=== PATIENT | male | born 1930 | race Caucasian/White ===

== ENCOUNTER → 2017-10-01 | Outpatient (CLI) | payer OTHER ==
[~2017-10-01] MED LIST: ACCUPRIL40 MG PO; AMLODIPINE BESYL5 MG PO; ARICEPT 5 MG TAB5 MG PO; ASPIR 8181 MG PO; CARTIA XT240 M1 PO; CELEXA40 MG PO; CO Q-1010 MG PO; ELIQUIS2.5 MG PO; LAMISIL AT 1% C12 G1 TOP; LAMISIL250 MG PO; LIPITOR 20 MG T20 M1 PO; MULTIVITAMINS PO; NAMENDA 10 MG T10 MG PO; RED YEAST RICE600 MG PO; SIMVASTATIN40 MG PO; SYNTHROID50 MCG PO; TRAMADOL 50 MG50 MG PO; VITAMIN B-625 MG PO; XANAX 0.25 MG0.25 MG PO
--- NOTE | ~2017-10-01 | EKG ---
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: Hung NINO : 1930 Requested By: Candy Ash Order Number: [id number] MD: Silviano Rios Measurements Intervals [place] Rate: 112 P: ID: QRS: 21 QRSD: 88 T: 89 QT: 356 QTc: 486 Interpretive Statements Atrial fibrillation Low voltage, extremity leads Anteroseptal infarct, old Nonspecific T abnormalities, lateral leads Compared to ECG 06/05/2015 18:21:10 Atrial fibrillation has replaced sinus rhythm Electronically Signed On 10-01-2017 17:33:43 QUALITY PROCESS LEAD by Silviano Rios [email or web address] <ELECTRONICALLY SIGNED> By: Silviano Rios MD, [facility] 10/01/17 1733 1318 131 Silviano Rios MD, [facility] /EPI
== END ==
LOC: CV 11:21
DX: I10 Essential (primary) hypertension (principal)

== ENCOUNTER 2018-01-12 17:09 | Inpatient (IN) | payer OTHER ==
[~2018-01-12] VITALS: Ht 175.3 cm; Wt 79.2 kg
--- NOTE | ~2018-01-12 | EEG ---
[facility] [address]anna [place] [address] ELECTROENCEPHALOGRAM Name: SILVIA BRICENO Room #: 352-P [facility] IN M.R.#: [id number] Admission: 01/12/18 Attend Phys: Radames Bates MD Discharge: 01/14/18 Date of : 31 Report #: [id number] THIS REPORT FOR: //name// CC: Oh Bates DATE OF SERVICE: 01/13/2018 This patient is being evaluated for TIA. EEG was done by placing the electrodes by standard 10-20 system of electrode placement. Both referential and sequential montages were used for recording. Background activity in this patient's EEG is about 11 Hz and 40 microvolts. It is a symmetrical activity. This patient became drowsy and also associated with bilateral slowing. Photic stimulation is unremarkable. Throughout the record, no active epileptiform activity was noticed. IMPRESSION: This patient's EEG is unremarkable. <ELECTRONICALLY SIGNED> By: Hosea Castaneda MD 01/16/18 1225 1153 1220 Hosea Castaneda MD /nt
--- NOTE | ~2018-01-12 | 2DMMODE ---
[facility] [place] [address] 2 D/M-MODE ECHOCARDIOGRAM Name: SILVIA BRICENO Room #: 352-P ADM IN M.R.#: [id number] Admission: 01/12/18 Attend Phys: Radames Bates MD Discharge: Date of : 31 Date of Service: 01/14/18 1225 Report #: [id number] THIS REPORT FOR: //name// APPROVED REPORT Study performed: 01/14/2018 10:56:10 EXAM: Limited 2D, Doppler, and color-flow Echocardiogram Patient Location: [facility] Room #: [facility] BSA: 1.95 HR: 110 bpm BP: 129/88 mmHg Rhythm: Atrial Fibrillation Other Information Study Quality: Good Indications Limited follow up echo. Possible TIA. Hx: Afib, HTN Echo Enhancing Agent Indication: Rule out Shunt Agent(s) / Amount(s) Used: Agitated Saline 6 cc Tricuspid Valve TR Peak Ochoa.: 2.65 m/s RAP Estimate: 15.00 mmHg TR Peak Gr.: 28.23 mmHg PA Pressure: 43.00 mmHg Left Ventricle The left ventricle is normal size. Severe concentric left ventricular hypertrophy. Left ventricular systolic function is normal. LVEF is 55%. Atria Left atrium is dilated. No shunting noted with contrast bubble injection. Aortic Valve The Aortic valve is sclerotic. Trace to mild aortic regurgitation. There is no aortic valvular stenosis. Mitral Valve The mitral valve is normal in structure. Mild mitral [facility] [address] [place] [address] 2 D/M-MODE ECHOCARDIOGRAM Name: SILVIA BRICENO Room #: 352-P ADM IN M.R.#: [id number] Admission: 01/12/18 Attend Phys: Radames Bates MD Discharge: Date of : 31 Date of Service: 01/14/18 1225 Report #: [id number] regurgitation. Tricuspid Valve The tricuspid valve is normal in structure. Mild tricuspid regurgitation. Estimated PAP is 40-45mmHg. Great Vessels IVC is dilated and collapses <50% with inspiration. Pericardium Trivial amount of anterior fluid noted. Left and right pleural effusions noted. <Conclusion> The left ventricle is normal size. LVEF is 55%. Left atrium is dilated. No shunting noted with contrast bubble injection. The Aortic valve is sclerotic. Trace to mild aortic regurgitation. The mitral valve is normal in structure. Mild mitral regurgitation. The tricuspid valve is normal in structure. Mild tricuspid regurgitation. Estimated PAP is 40-45mmHg. Trivial amount of anterior fluid noted. Left and right pleural effusions noted. <ELECTRONICALLY SIGNED> By: Mario Clements MD 01/14/18 1225 1225 1225 Mario Clements MD /INF
--- NOTE | ~2018-01-12 | HC ---
[facility] [place] [address] CONSULTATION Name: SILVIA BRICENO Room #: 352-P [facility] IN M.R.#: [id number] Admission: 01/12/18 Attend Phys: Radames Bates MD Discharge: 01/14/18 Date of : 31 Report #: [id number] THIS REPORT FOR: //name// CC: Karie Mike DATE OF SERVICE: 01/13/2018 HISTORY OF PRESENT ILLNESS: This is an 87-year-old male patient who has a baseline dementia. The patient goes to a neurologist at [facility]. The patient does not know the name of that neurologist. did not know the name of the neurologist either. He is on a combination of donepezil and Namenda. According to the , this patient woke up and he could not recognize him which is very unusual for him. He also looks slower. Since then, his symptoms have resolved. The patient does not remember this episode. It happened spontaneously without any trauma. REVIEW OF SYSTEMS: Indicate that this patient has chronic atrial fibrillation. He usually follows up with Dr. Judd for the atrial fibrillation. He is on medications including what looks like Cardizem. He has a lumbar fusion in the past. He has a history of DVT, but apparently that was because of surgery. The patient denies any new eye, ENT, cardiac, respiratory, GI, , constitutional, dermatological, hematological, psychiatric, throat, allergic symptom associated with present symptomatology. PAST MEDICAL HISTORY: Positive for atrial fibrillation. FAMILY HISTORY: Negative for any early age stroke. SOCIAL HISTORY: He lives with his and I talked to her in detail. He does not smoke or drink alcohol. PHYSICAL EXAMINATION: NEUROLOGIC: Indicates that he is alert. He is responsive. He could not tell me the month. His memory is very poor. That will be consistent with dementia. The speech looks intact. His fund of knowledge is poor. Cranial nerve examination 2-12 is unremarkable. He looks like has unremarkable strength, sensation, reflexes and tone. There is no cerebellar sign. I could not look at the patient's fundus. GENERAL: He is a very well-developed individual who does not have any dysmorphic features of eyes, ears and face. HEENT: His vision and hearing looks adequate. EXTREMITIES: His pulses are somewhat difficult to feel, but no edema, cyanosis or jaundice was noticed. VITAL SIGNS: Blood pressure is 128/88, respirations 19, pulse is 72, temperature is 97.8. [facility] [address] [place] [address] CONSULTATION Name: SILVIA BRICENO Room #: 352-P [facility] IN [facility]#: [id number] Admission: 01/12/18 Attend Phys: Radames Bates MD Discharge: 01/14/18 Date of : 31 Report #: [id number] LABORATORY DATA: White count is 7.9. His sodium is 138. His TSH is slightly abnormal. He did have a CT scan of the head, which mainly showed atrophic changes. His heart is irregular consistent with atrial fibrillation. IMPRESSION: He had an episode. I am not sure the etiology of this episode. He also has some history of falls. All of it is somewhat concerning considering his history of atrial fibrillation. If he did have a transient ischemic attack or small stroke that will change his CHADS score and the question of anticoagulation need to be readdressed then. RECOMMENDATION: I had a long talk with this patient's . I discussed her options with her. I suggested that the patient complete his workup before he goes. She is agreeable for that. She initially has some reservation, but subsequently she agreed to stay. My recommendation will be that we get an MRI of the brain done, which is ordered. I will also get an EEG done because of this episode of confusion and a history of fall and I will suggest getting reevaluation done by Cardiology. After this workup is done, the question need to be decided whether he had a small stroke or a TIA or this episode was not related to stroke or TIA. That is an important question in this patient because it does not change his CHADS score, but if the MRI is positive for small stroke that will be easy to decide; but if the MRI is negative, we have to make a subjective call and we will follow up and do that. Dr. Hassan will be on-call will be covering the services from tomorrow and I will ask her to continue to follow up with you from tomorrow. <ELECTRONICALLY SIGNED> By: Hosea Castaneda MD 01/16/18 1224 1229 0119 Hosea Castaneda MD /nt
--- NOTE | ~2018-01-12 | EKG ---
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 : 1930 Requested By: Kev Arias Order Number: [id number] MD: Riley Curry Measurements Intervals [place] Rate: 108 P: MA: QRS: -13 QRSD: 95 T: 73 QT: 407 QTc: 546 Interpretive Statements Atrial fibrillation Anteroseptal infarct, old Nonspecific T abnormalities, lateral leads Compared to ECG 10/01/2017 13:18:43 Myocardial infarct finding still present T-wave abnormality still present Electronically Signed On 01-14-2018 8:05:11 CDT by Riley Curry [email or web address] <ELECTRONICALLY SIGNED> By: Riley Curry MD 01/14/18 0805 190 05 Riley Curry MD /EPI
[~2018-01-12 17:09] MED LIST changes: -ARICEPT 5 MG TAB5 MG PO; -ASPIR 8181 MG PO; -CARTIA XT240 M1 PO; -ELIQUIS2.5 MG PO; -LIPITOR 20 MG T20 M1 PO; -NAMENDA 10 MG T10 MG PO; -SYNTHROID50 MCG PO
[2018-01-12 17:10] VITALS: BP 154/110
[2018-01-12] MEDS ORDERED: NAMENDA 10 MG T10 MG PO (17:23)
[2018-01-12] MEDS ORDERED: SYNTHROID50 MCG PO (17:23)
[2018-01-12] MEDS ORDERED: LIPITOR 20 MG T20 M1 PO (17:24)
[2018-01-12] MEDS ORDERED: ARICEPT 5 MG TAB5 MG PO (17:26)
[2018-01-12 18:05] LABS: ABSOLUTE NEUTROPHILS 5.1 thou/uL (1.4-8.2); BASOPHILS 0.7 % (0.0-2.0); EOSINOPHILS 2.5 % (0.0-3.0); HEMATOCRIT 40.9 % (42.0-52.0); HEMOGLOBIN 13.6 gm/dL (14.0-18.0); LYMPHOCYTES 22.6 % (24.0-44.0); MCH 29.5 pg (26.0-34.0); MCHC 33.2 g/dL (28.0-37.0); MONOCYTES 9.7 % (1.0-8.0); PLATELET COUNT 212 thou/uL (150-400); POLYS 64.5 % (36.0-66.0); RBC 4.59 mil/uL (4.50-6.00); RDW 14.8 % (10.5-14.5); WBC 7.9 thou/uL (4.0-11.0)
[2018-01-12 18:08] LABS: URINE BILIRUBIN NEGATIVE (Negative); URINE BLOOD NEGATIVE (Negative); URINE CLARITY CLEAR; URINE COLOR YELLOW; URINE GLUCOSE-RANDOM* NEGATIVE (Negative); URINE KETONES NEGATIVE (Negative); URINE LEUKOCYTES-REFLEX NEGATIVE (Negative); URINE NITRITE-REFLEX NEGATIVE (Negative); URINE PROTEIN (DIPSTICK) 1+ (Negative); URINE SPECIFIC GRAVITY >= 1.030 (1.005-1.035); URINE UROBILINOGEN 0.2 E.U./dl (0.2-1.0)
[2018-01-12 18:12] LABS: CREATININE 1.6 mg/dL (0.7-1.3); POTASSIUM 3.5 mmol/L (3.5-5.1)
[2018-01-12 18:16] LABS: BACTERIA-REFLEX None Seen /HPF (None Seen); CASTS None Seen /LPF (None Seen); CRYSTALS None Seen /LPF (None Seen); MUCUS >6 Heavy strn/LPF (None Seen); SQUAMOUS 0-3 Few /LPF (0-3); URINE RBC 0-2 Rare /HPF (0-2); URINE WBC-REFLEX 0-5 Rare /HPF (0-5)
[2018-01-12] MEDS ORDERED: ASPIR 8181 MG PO (18:51)
[2018-01-12 19:21] LABS: MAGNESIUM 2.3 mg/dL (1.8-2.4); TROPONIN-I < 0.04 ng/mL (<0.06)
[2018-01-12 20:01] VITALS: BP 127/94
[2018-01-12 21:27] VITALS: BP 139/57
[2018-01-12 21:30] VITALS: BP 146/100
[2018-01-12 23:40] VITALS: BP 128/83
[2018-01-13] MEDS ORDERED: CARTIA XT240 M1 PO (01:07)
[2018-01-13 05:00] VITALS: BP 130/81
[2018-01-13 07:18] VITALS: BP 133/96
[2018-01-13 11:12] VITALS: BP 128/88
[2018-01-13 15:17] LABS: ABSOLUTE NEUTROPHILS 4.7 thou/uL (1.4-8.2); BASOPHILS 0.8 % (0.0-2.0); EOSINOPHILS 2.8 % (0.0-3.0); HEMATOCRIT 40.3 % (42.0-52.0); HEMOGLOBIN 13.2 gm/dL (14.0-18.0); LYMPHOCYTES 22.5 % (24.0-44.0); MCHC 32.8 g/dL (28.0-37.0); MCV 88.4 fL (80.0-100.0); MONOCYTES 8.9 % (1.0-8.0); PLATELET COUNT 206 thou/uL (150-400); RBC 4.56 mil/uL (4.50-6.00); RDW 15.2 % (10.5-14.5); WBC 7.2 thou/uL (4.0-11.0)
[2018-01-13 17:43] LABS: CALCIUM 8.5 mg/dL (8.5-10.1); CREATININE 1.7 mg/dL (0.7-1.3); POTASSIUM 3.5 mmol/L (3.5-5.1)
[2018-01-13 19:15] VITALS: BP 138/86
[2018-01-14] VITALS (7 sets, daily range): BP systolic 109–141; BP diastolic 70–98
[2018-01-14 05:52] LABS: ABSOLUTE NEUTROPHILS 4.2 thou/uL (1.4-8.2); BASOPHILS 0.7 % (0.0-2.0); EOSINOPHILS 3.6 % (0.0-3.0); HEMATOCRIT 39.4 % (42.0-52.0); LYMPHOCYTES 26.2 % (24.0-44.0); MCH 29.1 pg (26.0-34.0); MCHC 33.1 g/dL (28.0-37.0); MCV 88.1 fL (80.0-100.0); MONOCYTES 11.3 % (1.0-8.0); PLATELET COUNT 193 thou/uL (150-400); POLYS 58.2 % (36.0-66.0); RBC 4.48 mil/uL (4.50-6.00); RDW 14.9 % (10.5-14.5); WBC 7.2 thou/uL (4.0-11.0)
[2018-01-14 06:00] LABS: CALCIUM 8.9 mg/dL (8.5-10.1); CREATININE 1.5 mg/dL (0.7-1.3); POTASSIUM 3.3 mmol/L (3.5-5.1)
== END 2018-01-14 19:08 | disposition home health service (06) | DRG 69 ==
LOC: ER 17:09 → EROBS 19:09 → 3W 19:09
PROVIDERS: Emergency Medicine; Hospitalist
DX: G45.9 Transient cerebral ischemic attack, unspecified (principal); N17.9 Acute kidney failure, unspecified; F03.90 Unspecified dementia, unspecified severity, without behavioral disturbance, psychotic disturbance, mood disturbance, and anxiety; E03.9 Hypothyroidism, unspecified; E78.5 Hyperlipidemia, unspecified; I48.2 Chronic atrial fibrillation; I12.9 Hypertensive chronic kidney disease with stage 1 through stage 4 chronic kidney disease, or unspecified chronic kidney disease; E86.0 Dehydration; N18.9 Chronic kidney disease, unspecified; Z79.82 Long term (current) use of aspirin; Z82.49 Family history of ischemic heart disease and other diseases of the circulatory system; Z79.899 Other long term (current) drug therapy
CPT/HCPCS: 10879

== ENCOUNTER 2018-01-17 11:32 | Inpatient (IN) | payer OTHER ==
[~2018-01-17] VITALS: Ht 172.7 cm; Wt 74.4 kg
--- NOTE | ~2018-01-17 | EKG ---
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
--- NOTE | ~2018-01-17 | EKG ---
[place] [address] [place] [address] ELECTROCARDIOGRAM REPORT Name: SILVIA BRICENO Room #: REG Neha#: [id number] Admission: 01/17/18 Attend Phys: Discharge: Date of : 31 Report #: [id number] THIS REPORT FOR: //name// [facility] ED Test Date: 2018-01-17 Test Time: 11:39:01 Pat Name: SILVIA BRICENO Department: Room: Gender: Residential Program Manager: [email or web address] : 1930 Requested By: Aileen Catalan Order Number: [id number] MD: Silviano Rios Measurements Intervals [place] Rate: 96 P: [place]: QRS: -20 QRSD: 94 T: 90 QT: 378 QTc: 478 Interpretive Statements Atrial fibrillation Anterior infarct, old Nonspecific T abnormalities, lateral leads Compared to ECG 01/12/2018 19:06:30 No significant changes Electronically Signed On 01-17-2018 12:29:40 CDT by Silviano Rios [email or web address] <ELECTRONICALLY SIGNED> By: Silviano Rios MD, [facility] 01/17/18 1229 1139 1139 Silviano Rios MD, FACC /EPI
[~2018-01-17 11:32] MED LIST changes: +ARICEPT 5 MG TAB5 MG PO; +ASPIR 8181 MG PO; +CARTIA XT240 M1 PO; +LIPITOR 20 MG T20 M1 PO; +NAMENDA 10 MG T10 MG PO; +SYNTHROID50 MCG PO
[2018-01-17 11:33] VITALS: BP 156/107
[2018-01-17 11:54] LABS: ABSOLUTE NEUTROPHILS 3.8 thou/uL (1.4-8.2); BASOPHILS 0.7 % (0.0-2.0); EOSINOPHILS 2.9 % (0.0-3.0); HEMATOCRIT 43.1 % (42.0-52.0); HEMOGLOBIN 14.2 gm/dL (14.0-18.0); LYMPHOCYTES 31.4 % (24.0-44.0); MCH 29.1 pg (26.0-34.0); MCHC 32.9 g/dL (28.0-37.0); MCV 88.6 fL (80.0-100.0); MONOCYTES 10.3 % (1.0-8.0); PLATELET COUNT 212 thou/uL (150-400); POLYS 54.7 % (36.0-66.0); RBC 4.86 mil/uL (4.50-6.00)
[2018-01-17 12:01] LABS: CALCIUM 9.1 mg/dL (8.5-10.1); CREATININE 1.6 mg/dL (0.7-1.3); POTASSIUM 3.4 mmol/L (3.5-5.1)
[2018-01-17 12:35] LABS: URINE BILIRUBIN NEGATIVE (Negative); URINE BLOOD NEGATIVE (Negative); URINE CLARITY CLEAR; URINE COLOR YELLOW; URINE GLUCOSE-RANDOM* NEGATIVE (Negative); URINE KETONES NEGATIVE (Negative); URINE LEUKOCYTES NEGATIVE (Negative); URINE NITRITE NEGATIVE (Negative); URINE PROTEIN (DIPSTICK) TRACE (Negative); URINE UROBILINOGEN 0.2 E.U./dl (0.2-1.0)
[2018-01-17 13:58] VITALS: BP 122/77
[2018-01-17 15:35] VITALS: BP 129/88
[2018-01-17 16:00] VITALS: BP 122/78
[2018-01-17 19:10] VITALS: BP 120/89
[2018-01-17 23:40] VITALS: BP 140/99
[2018-01-18 03:35] VITALS: BP 150/90
[2018-01-18 08:35] VITALS: BP 133/89
[2018-01-18 09:45] LABS: HEMATOCRIT 40.8 % (42.0-52.0); HEMOGLOBIN 13.5 gm/dL (14.0-18.0); MCH 29.3 pg (26.0-34.0); MCHC 33.1 g/dL (28.0-37.0); MCV 88.3 fL (80.0-100.0); RBC 4.62 mil/uL (4.50-6.00); RDW 14.6 % (10.5-14.5); WBC 6.6 thou/uL (4.0-11.0)
[2018-01-18 10:01] LABS: ALBUMIN 3.5 g/dL (3.4-5.0); CALCIUM 9.1 mg/dL (8.5-10.1); CREATININE 1.5 mg/dL (0.7-1.3); POTASSIUM 3.3 mmol/L (3.5-5.1); TOTAL BILIRUBIN 0.9 mg/dL (<0.1-1.0)
[2018-01-18 12:15] VITALS: BP 115/79
[2018-01-18 16:08] VITALS: BP 113/78
[2018-01-18 17:13] VITALS: BP 113/78
[2018-01-18 20:00] VITALS: BP 116/78
[2018-01-19 04:00] VITALS: BP 124/81
[2018-01-19 08:03] VITALS: BP 131/89
[2018-01-19 12:00] VITALS: BP 134/94
[2018-01-19 15:13] VITALS: BP 105/68
[2018-01-19 15:26] VITALS: BP 100/67
[2018-01-19 19:45] VITALS: BP 111/75
[2018-01-20 03:57] VITALS: BP 131/88
[2018-01-20 08:27] VITALS: BP 128/84
[2018-01-20 11:50] VITALS: BP 126/81
[2018-01-20] MEDS ORDERED: ELIQUIS2.5 MG PO (14:56)
[2018-01-20 15:35] VITALS: BP 113/78
== END 2018-01-20 16:16 | disposition home health service (06) | DRG 71 ==
LOC: ER 11:32 → 3W 13:47 → EROBS 13:47 → 3W 15:36
PROVIDERS: Emergency Medicine; Hospitalist
DX: G93.40 Encephalopathy, unspecified (principal); G45.9 Transient cerebral ischemic attack, unspecified; I10 Essential (primary) hypertension; F03.90 Unspecified dementia, unspecified severity, without behavioral disturbance, psychotic disturbance, mood disturbance, and anxiety; I48.2 Chronic atrial fibrillation; N18.9 Chronic kidney disease, unspecified; E03.9 Hypothyroidism, unspecified; E87.6 Hypokalemia; F32.9 Major depressive disorder, single episode, unspecified; F48.2 Pseudobulbar affect; Z79.899 Other long term (current) drug therapy; Z79.82 Long term (current) use of aspirin; Z87.891 Personal history of nicotine dependence
CPT/HCPCS: 10879

== ENCOUNTER 2019-01-05 14:22 | Inpatient (IN) | payer OTHER ==
[~2019-01-05] VITALS: Ht 175.3 cm; Wt 78.1 kg
[~2019-01-05 14:22] MED LIST changes: +ELIQUIS2.5 MG PO
[2019-01-05 14:23] VITALS: BP 132/68
[2019-01-05 14:49] LABS: ABSOLUTE NEUTROPHILS 6.1 thou/uL (1.4-8.2); BASOPHILS 0.6 % (0.0-2.0); EOSINOPHILS 1.1 % (0.0-3.0); HEMOGLOBIN 14.3 gm/dL (14.0-18.0); LYMPHOCYTES 14.8 % (24.0-44.0); MCH 31.1 pg (26.0-34.0); MCHC 33.9 g/dL (28.0-37.0); MCV 91.5 fL (80.0-100.0); MONOCYTES 8.1 % (1.0-8.0); PLATELET COUNT 243 thou/uL (150-400); POLYS 75.4 % (36.0-66.0); RBC 4.59 mil/uL (4.50-6.00); RDW 14.8 % (10.5-14.5); WBC 8.1 thou/uL (4.0-11.0)
[2019-01-05 14:57] LABS: CALCIUM 9.1 mg/dL (8.5-10.1); CREATININE 1.8 mg/dL (0.7-1.3); POTASSIUM 3.2 mmol/L (3.5-5.1)
[2019-01-05 15:01] LABS: INR 1.2; PROTIME 12.5 Seconds (9.3-11.4)
[2019-01-05 15:02] LABS: ALBUMIN 3.8 g/dL (3.4-5.0); TOTAL BILIRUBIN 0.9 mg/dL (<0.1-1.0); TOTAL PROTEIN 7.7 g/dL (6.4-8.2)
[2019-01-05 15:04] LABS: URINE BILIRUBIN NEGATIVE (Negative); URINE BLOOD 3+ (Negative); URINE CLARITY CLEAR; URINE COLOR YELLOW; URINE GLUCOSE-RANDOM* NEGATIVE (Negative); URINE KETONES NEGATIVE (Negative); URINE LEUKOCYTES-REFLEX NEGATIVE (Negative); URINE NITRITE-REFLEX NEGATIVE (Negative); URINE PROTEIN (DIPSTICK) TRACE (Negative); URINE SPECIFIC GRAVITY 1.015 (1.005-1.035); URINE UROBILINOGEN 0.2 E.U./dl (0.2-1.0)
[2019-01-05 15:16] LABS: RENAL EPITHELIAL CELLS 0-3 Few /LPF (None Seen); TRANSITIONAL EPITHEL CELL 0-3 Few /LPF (None Seen); URINE RBC >20 Many /HPF (0-2)
[2019-01-05 15:17] LABS: CASTS None Seen /LPF (None Seen); SQUAMOUS None Seen /LPF (0-3); URINE WBC-REFLEX 0-5 Rare /HPF (0-5)
[2019-01-05 15:18] LABS: BACTERIA-REFLEX None Seen /HPF (None Seen); CRYSTALS None Seen /LPF (None Seen)
[2019-01-05] MEDS ORDERED: ELIQUIS2.5 MG PO (15:22)
[2019-01-05] MEDS ORDERED: VITAMIN D1000 UNI1 PO (15:23)
[2019-01-05] MEDS ORDERED: FLOMAX0.4 MG PO (15:23)
[2019-01-05 16:20] VITALS: BP 114/82
--- NOTE | 2019-01-05 16:39 | NUR ---
REPORT GIVEN TO BEHAVIORAL HEALTH
[2019-01-05 16:40] VITALS: BP 122/83
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
--- NOTE | 2019-01-05 18:39 | NUR ---
PATIENT ADMINISTERED MORPHINE 10 MG SL AT APPROXIMATELY 1500 P.M., PAIN. SON ARRIVED ON THE UNIT AT 1600 FOR VISITNG HOURS, NOTED TO DR. BELLAMY, WHO WAS PRESENT ON THE UNIT, THAT THE PATIENT STILL ACTED IF HE IS IN PAIN. NEW ORDER FROM DR. BELLAMY, RECEIVED AT 1815, TO GIVE MORPHINE 5 MG SL, Q 1 HOUR, SEVERE NON-VERBAL PAIN. ADMINISTERED AT THIS TIME.
[2019-01-05 19:41] VITALS: BP 125/86
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
--- NOTE | 2019-01-06 04:22 | NUR ---
IT WAS REPORTED TO THIS NURSE FROM THAT HE ALSO TAKES DILTIAZEM ER 360MG PO Q DAY.
[2019-01-06 07:30] VITALS: BP 133/81
--- NOTE | 2019-01-06 08:50 | NUR ---
PT STATED THAT HE HAS THE WORST BREAKFAST EVER. PT GOT UP A LITTLE LATE AND NEEDED TRAY WARMED UP. PT HAS HIS REG. CLOTHES ON HASN'T TRIED TO TAKEN OFF. PT LUNGS CLEAR.
--- NOTE | 2019-01-06 09:00 | NUR ---
PT WENT BACK TO BED AFTER EATING BREAKFAST AND TAKING PO MEDS. ENCOURAGED PT TO STAY FOR GROUP.
--- NOTE | 2019-01-06 12:13 | NUR ---
PT OUT IN DINNING ROOM TO EAT. ADM KDUR 20MEQ 2 TABS PO X1.
--- NOTE | 2019-01-06 17:22 | NUR ---
PT OUT TO EAT DINNER. PT STEADY. PT FAMILY HAS CALLED TODAY TO CHECK ON HIM.
[2019-01-06 19:44] VITALS: BP 149/92
--- NOTE | 2019-01-07 02:55 | NUR ---
PATIENT ASSESSED AND IS ALERT X 1-2. IS CONFUSED MOST OF THE SHIFT. DENIES ANY PAIN OR SOA. WEARS BREIFS, BUT DOES WANT TO TAKE HIS CLOTHES OFF ALL THE TIME. PLACED TO BED AND HAS STAYED THERE MOST OF THE NIGHT. ON ROOM AIR. NO AGGRESSIVE BEHAVIOR [id number] THIS STAFF LAST NIGHT. INCONT OF BLADDER CHECKED BREIF BEFORE BED AND DID NOT WEAR BRIEF TO BED JUST PJ'S BOTTOMS. BED ALARM ON BED. VS STABLE. CALLED 2 TIMES SO NURSES UPDATED HER ON HIS CONDITION.TAKEN HIS MEDS WITHOUT PROBLEMS. CONT PLAN OF CARE.
--- NOTE | 2019-01-07 14:33 | NUR ---
PATIENT IS UP AND OUT ON THE UNIT, AMBULATES WITH ASSIST OF ROLLER WALKER. PATIENT TOOK ALL MORNING MEDICATION WHOLE WITHOUT DIFFICULTY. PATIENT IS EATING MEALS AND DRINKING FLUID WELL. PATIENT DENIES SUCIDAL AND HOMOCIDAL IDEATION. PATIENT IS FORGETFUL, SOMEWHAT CONFUSED, BUT ABLE TO VOICE NEED. PATIENT'S GAOL TODAY IS TO GO HOME. PATIENT CALLED TO CHECK ON HIM, SHE STATES SHE WILL BE HERE THIS EVENING TO VISIT. NO AGGRESSION OR AGITATION NOTED. PATIENT PARTICIPATED IN MORNING GROUP THERAPY, DECLINE AFTEROON GROUP. WILL CONTINUE TO ENCOURAGE ALL GROUP PARTICIPATION,, AND MONITOR FOR SAFETY.
--- NOTE | 2019-01-07 16:48 | NUR ---
SW schedule a family meeting with pt on January 08, 2019.
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
[2019-01-07 19:38] VITALS: BP 110/80
--- NOTE | 2019-01-07 19:45 | NUR ---
assumed care of the pt at 1914 pm. alert et oriented x 3. makes needs known. walks with a steady gait. denies si and hi, denies anxiety and depression, denies a/v hallunications. walks with a walker. denies pain at this time. continues on 12 minute checks for his safety.
--- NOTE | 2019-01-08 00:28 | NUR ---
the pt keeps getting up to go to the bathroom, voiding frequently. the pt is on flomax. called the physician internal controls manager.
--- NOTE | 2019-01-08 00:59 | NUR ---
THIS EVENING PT BEGAN GETTING UP OUT OF BED OFTEN, AGITATED WITH THE BED ALARM, AND SEXUALLY PRE OCCUPIED WITH STAFF TELLING A CASTING TRUCKER TO 'GET ON TOP OF ME AND LET ME PUT MY LIAN IN YOU.' DR. PERKINS NOTIFIED WITH ORDERS FOR HALDON 1MG X1 NOW.
[2019-01-08 06:37] LABS: CALCIUM 9.3 mg/dL (8.5-10.1); CREATININE 1.7 mg/dL (0.7-1.3); MAGNESIUM 2.1 mg/dL (1.8-2.4); POTASSIUM 3.2 mmol/L (3.5-5.1)
--- NOTE | 2019-01-08 06:37 | NUR ---
the pt slept 8.4 hours last night.
[2019-01-08 10:46] VITALS: BP 106/63
[2019-01-08 13:39] VITALS: BP 106/63
--- NOTE | 2019-01-08 13:48 | NUR ---
ASSUMED CARE AT 0700 TODAY. PT. IN HIS ROOM NUDE, BUT ATTEMPTING TO GET DRESSED. STAFF HELPED HIM GET DRESSED AND ONTO THE UNIT FOR MEALS. DURING MORNING GROUP HE WAS MAKING SEXUAL REMARKS. HE ALSO INVITED BO FROM OT INTO HIS ROOM. SHE WAS UNABLE TO COMPLETE HER EVALUATION DUE TO HIS INAPPROPRIATENESS WITH HER. HE ATTEMPTED TO COME ON THE UNIT ONCE WITHOUT ANY PANTS ON, BUT WAS REDIRECTABLE TO HIS ROOM. STAFF TALKED TO HIM ABOUT HIS COMMENTS, BUT THIS MADE NO DIFFERENCE ON HIS BEHAVIORS. HE DID ATTEND AFTERNOON GROUP. HE WAS COMPLIANT WITH TAKING HIS MEDICATIONS. ATE WELL TODAY.
--- NOTE | 2019-01-08 16:20 | NUR ---
PSYCHOSOCIAL ASSESSMENT Diagnosis: BEHAVIOR DISTURBANCE Admit Date: 01/05/19 Psychiatrist: MIA Symptoms associated with current admission: Violence/aggression Poor impulse control Presenting problems: Pt was sexual inappropriate, and he was aggressive towards her. Pt was sexual inappropriate to [facility] staff. Precipitating Factors: Non-compliance psychothx Comments: Pt Anna Marie stated that this was abnormal behavior. History of High Risk Behavors: Hx violence/aggression Suicide Risk Factors: D A-Signs of alcohol/substance abuse w/ suicide ideation B-Recent suicidal thoughts or attempts C-Recent thoughts or attempts of harming someone else D-Altered mental status due to psychiatric/chem dep etiology E-The behavior exists - add comment PSYCHIATRIC HISTORY Age of onset: 88 Prior hospitalizations: Denies hx hospitalization Hospital names and dates, if available: Most Recent Outpatient HX: Additional information: Legal Status: DPOA Guardian/Conservatorship type: DPOA Contact name: Anna Marie Jiménez Contact phone: [phone] Other: Name: Phone: Other legal issues: (Arrests/convictions Current Status) None P.O. Name and Phone #: FAMILY HISTORY Place of : [place], [place] Raised in: [place], [place] # Siblings & order: 3 sibilings, middle child Describe relationships within family of origin: Pt is close to his sister. Pt conversate with his family. Any psychiatric or substance abuse problems within family of origin: Y Has patient been sexually or physically abused, neglected or been taken advantage of financially? N Has the abuse been reported? N Other pertinent family information: Marital history/significant relationships: Domestic violence: N Children ages & who is caring for them: Pt has 3 adult children Is child welfare involved? N Drug history: None Alcohol Use: Frequency: Quantity: Have you ever felt you ought to Cut down on drinking? Have people Annoyed you by criticizing your drinking? Have you ever felt bad or Guilty about your drinking? 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 AXIS SCREENING TOOL E[place] I Mood Disorders: Elyria II Personality/Mental Retardation: [place] III Medical Impairment: Alzheimer's HTN Hypothyroidism Cancer A-fib E[place] IV Problem(s) with: Health care services Economic/Financial Issues Other psych/environ prob Elyria V: 50-Serious w/impairment Additional E[place] comments: PERSONAL BACKGROUND Relevant cultural issues (ethnicity, values, beliefs, spiritual): Spiritual Baptist: Buddhism Importance of amish to patient: High What hobbies/interests does the patient have? Boat Water Ski Tennis [place] Sexual orientation (relevant impact to current treatment): Heterosexual : Where did you serve: Branch of service: Rank: Discharge status: Are you a combat ? Occupational/Work: Do you work? N Do you want to work? N How many hours do you work/week? 0 How many jobs have you had in the past 5 years? 0 Do you need assistance finding a job? N Does the patient need assistance in job training? N Source of income: SSI Does patient have a Payee? Y Payee name: Anna Marie Jiménez Approximate monthly income: 1500 Does patient have adequate funds for next 30 days? N Education background: High school diploma Highest grade completed: 12th grade Other Educational/training programs: Functional deficits: Explain functional deficits: Current living situation: House/apartment Address/phone where pt. is living: Pt lives in [place] Does the patient plan to continue there after DC? No Patient lives with: Another facility Will family/significant other be involved in treatment? Other community support services utilized: Pt will need a referral to a memory care unit Support System Available (family/friend) Name: Phone: Relationship: Name: Phone: Relationship: Name: Phone: Relationship: Patient strengths: Family support Motivated Insight Community support Patient's assets: Positive marriage Positive support system Patient's weaknesses: Financial support Chronic hx mental illness Health problems Lack of housing Additional weaknesses: Pt is sexual inappropriate. Patient's perception of current social director/case management needs: Pt stated a SS is someone who help with the family. PRELIMINARY DISCHARGE PLAN Discharge plan/Community resource contacts: Pt will discharge into a memory care unit. Discharge needs: Pt need 3-4 referrals to NF. Problems anticipated on discharge: Compliance w/ med regimen Need financial assistance Comments: (factors affecting DC plan/pt. response/interventions) Pt will need a memory care unit.
--- NOTE | 2019-01-08 16:46 | NUR ---
LYNNETTE met with pt Anna Marie concerning [place] Medicaid application, and housing. SW mention that she can send pt information, and application to [facility]. LYNNETTE provided a list of NF in [place]. LYNNETTE will follow-up with pt on tomorrow, January 09, 2019.
[2019-01-08 20:14] VITALS: BP 139/77
--- NOTE | 2019-01-08 22:30 | NUR ---
Pt resting in bed upon arrival to shift. Pt observed in bed with his pants off, hands on penis. Pt redirected to pull up his pants and he complied. Pt compliant with hs meds and hs snack. Pt asked nurse why his left with nurses . Pt supported and told his did not leave with nurses and that his is at home and loves him. Pt did not discuss topic furhter. Gait steady with ambulation.
--- NOTE | 2019-01-09 05:54 | NUR ---
Pt urinated in restroom x 4 throughout the night. Pt continued to try and shut door even after verbal redirection.
[2019-01-09 09:19] VITALS: BP 112/78
--- NOTE | 2019-01-09 11:09 | NUR ---
Upon group beginning this AM, pt observed invited female peer to sit with him on couch. Female peer sat near him with appropriate distance. This patient then observed moving closer to her and putting his arm around her. Pt redirected and encouraged to practice appropriate boundaries. Redirection successful.
--- NOTE | 2019-01-09 15:56 | NUR ---
IRRITABLE/DYSPHORIC MOOD THIS AM-WHEN APPROACHED FOR AM ASSESSMENT STATES "DON'T SNEAK UP ON ME LIKE THAT-WHAT KIND DUMB WOMAN ARE YOU" VISIBLE IN DAYROOM SITTING QUIETLY WITH PEERS BUT LITTLE NOTED INTERACTION OR SPONTANEOUS SMILING/CONVERSATION. DENIES COMPLAINTS OF PAIN/DISCOMFORT-DENIES SHORTNESS OF BREATH-IS NOTED TO HAVE PULSE OF 126 DOCUMENTED THIS AM FOR AM VS-AM CARDIZEM GIVEN PER SCHEDULED MEDS AND APICAL PULSE RECHECK AT 1300 IS 98 AND REGULAR. DID MAKE SEXUALLY INAPPROPRIATE COMMENT TO THIS RN DURING PHYSICAL ASSESSMENT STATING "I COULD STRIP THE CLOTHES OFF A WOMAN LIKE YOU AND MAKE LOVE" GAIT STEADY WITH USE OF ROLLER WALKER.
--- NOTE | 2019-01-09 16:07 | NUR ---
LYNNETTE met with pt Anna Marie to assist with [place] Medicaid. LYNNETTE faxed the application to [facility] at . LYNNETTE mailed the original copies to Pieter Lucero [address] [place] [address]. LYNNETTE helped pt collected the documents that was needed for the application. LYNNETTE will follow-up with pt concerning his application.
[2019-01-09 19:46] VITALS: BP 113/66
[2019-01-09 23:00] VITALS: BP 113/66
--- NOTE | 2019-01-10 01:28 | NUR ---
RECEIVED REPORT FROM OFFGOING NURSE, ASSUMED CARE @ 19:15. IN ROOM, SITTING ON BED, FULLY DRESSED AT THE START OF THE SHIFT. COOPERATIVE WITH ASSESSMENT, DENIES PAIN, REPORTS BM THIS A.M. VS ARE STABLE. TOOK MEDS WHOLE WITH WATER, ASKING FOR MEDICATION NAMES. THIS INFORMATION WAS PROVIDED. PT DRESSED IN HOSPITAL GOWN, LAID DOWN IN BED. WILL CONTINUE TO MONITOR.
--- NOTE | 2019-01-10 05:58 | NUR ---
SLEPT 8 HOURS, GETTING UP SEVERAL TIMES IN THE NOC TO USE THE TOILET. WILL CONTINUE TO MONITOR.
[2019-01-10 07:25] VITALS: BP 109/66
--- NOTE | 2019-01-10 10:20 | NUR ---
[id number]: Report rec from noc shift, care assumed. Ambulatory to DR, gait slow/steady. Oriented to name and place, forgetful at times about instructions and time. Feeds self, appetite fair, denies n/v, last BM 01/09. Takes meds whole w/o difficulty. Cooperative with staff and others.
--- NOTE | 2019-01-10 18:52 | NUR ---
NOTED TO BECOME RESTLESS,PACING IN HALLWAYS-ASKING TO USE PHONE EVERY 2-3 MINUTES-ASSISTED IN CALLING TIBURCIO AT APPROX 1815 AND WAS TELLING HER TO COME PICK HIM UP-BELIEVES THAT HE HAS BEEN DISCHARGED AND IS UNABLE TO BE REDIRECTED OFF OF THIS-ATTEMPTED TO DISTRACT HIM BY LOOKING AT NEWSPAPER OR WATCHING TV BUT REMAINS RESTLESS,INSISTING ON LEAVING. ZYPREXA 2.5MG GIVEN PO PRN AT 1845-GAIT SLOW BUT STEADY WITH USE OF ROLLER WALKER
[2019-01-10 19:23] VITALS: BP 123/74
--- NOTE | 2019-01-10 20:25 | NUR ---
ASSUMED CARE @ 19:15, IN DAY ROOM SITTING ON COUCH WATCHING TV. ASKS TO MAKE A PHONE CALL TO QUITE OFTEN. HAS TALKED TO HER RECENTLY AND SEEN HER DURING VISITING HOURS TODAY. COOPERATED WITH ASSESSMENT, HRRR, LUNGS CTA, BOWEL SOUNDS NORMOACTIVE X4 Q. REPORTS BM THIS MORNING. ORIENTED TO SELF AND . CANNOT NAME TODAYS DATE, EVEN WITH A NEWSPAPER IN HAND. REPORTS THE PRESIDENT IS MON. TOOK MEDS WHOLE WITH WATER. HAS WALKER NEXT TO WHERE HE IS SITTING. WILL CONTINUE TO MONITOR Q12 MINUTES FOR SAFETY.
[2019-01-10 20:33] VITALS: BP 123/74
--- NOTE | 2019-01-11 05:38 | NUR ---
IN BED ALL NOC SLEEPING WELL. GOT UP TO USE TOILET X3 AND RETURNED TO BED. WILL CONTINUE TO MONITOR.
[2019-01-11 07:30] VITALS: BP 122/58
[2019-01-11 08:00] VITALS: BP 122/58
--- NOTE | 2019-01-11 09:00 | NUR ---
PT AWAKE THIS AM AND OUT TO DINNING ROOM WITH WALKER. PT EATING BREAKFAST. PT HAS EXP RHONCHI TO RUL AND LLL. PT HR IRREGULAR. PT GETTING IRRITATED WITH ANOTHER PT AND TELLING HIM TO BE QUIET. PT STATED HIS GOAL TODAY WAS TO WATCH TV AND READ NEWSPAPER.
--- NOTE | 2019-01-11 09:30 | NUR ---
PT SLEEPING DURING GROUP.
--- NOTE | 2019-01-11 16:00 | NUR ---
PT WAS ASLEEP, CAME TO VISIT. PT UP WITH WALKER, PT SLEEPY WITH VISIT WITH . HE DID SOME LEG EXERCISES WITH .
[2019-01-11 19:31] VITALS: BP 127/84
[2019-01-11 21:11] VITALS: BP 128/90
[2019-01-11 22:09] VITALS: BP 110/74
[2019-01-11 22:10] VITALS: BP 110/74
--- NOTE | 2019-01-11 22:24 | NUR ---
the pt was yelling for help. this designer writer walked into the pt's room and he was sitting on the floor beside his bed, vital signs were taken on the patient. 97.9, 128/90, 58, 18 and o2 sat was 96% on room air. assisted back to the chair and then back to bed with the assistance of 2. Notified the FORMING ROLL OPERATOR correctional therapy director, the family, the household appliances salesperson. will continue to monitor.
--- NOTE | 2019-01-11 23:22 | NUR ---
ASSUMED CARE OF THE PT AT 1914 PM. THE PT WAS SITTING IN THE BED, WHEN THIS CLAM SHOVEL OPERATOR CAME ON DUTY, SO FAR THIS NOC SHIFT THE PT HAS BEEN TO THE BATHROOM X 2. WHEN THIS CLAM SHOVEL OPERATOR WENT TO FIRST ASSESS THE PT HE ASKED THIS CLAM SHOVEL OPERATOR TO CLIMB INTO BED WITH HIM. ALERT ET CONFUSED AT TIMES. DENIES ANXIETY AND DEPRESSION. DENIES SI/HI. CALM EARLIER IN THE SHIFT. REMAINS ON 12 MINUTE CHECKS FOR HIS SAFETY.
--- NOTE | 2019-01-12 06:08 | NUR ---
the pt slept 9.2 hours last night. remains on 12 minutes checks for his safety.
[2019-01-12 07:00] VITALS: BP 120/84
[2019-01-12 11:00] VITALS: BP 100/64
--- NOTE | 2019-01-12 12:08 | NUR ---
Date of Admission: 01/05/19 Date of Activity Therapy Assessment:01/08/2019 Activity Goal:Pt will partipate in two RT groups per day. Initial Goal: To increase socialization and to be given opportunities to exhibit appropriate social boundaries. Weekly progress towards goal:Did not achieve. Group participation level: Minimal Behaviors observed: Flat Affect. Requires frequent reminders and redirections to stay on task. Passive or minimal particiaption in most groups. Innappropraite social boundaries. Plan: 1 group a day or 1:1 session when appropriate.
--- NOTE | 2019-01-12 15:19 | NUR ---
CALM AND COOPERATIVE INITALLY THIS AM FROM APPROX [id number] GROUPS,MEALS,CONTINENT OF BOWEL AND BLADDER,USING ROLLER WALKER AND SBA X 1 STAFF TO GET TO/FROM ROOMTO DAYROOM. AT APPROX. 1445 WENT TO ROOM AND BEGAN REMOVING HIS CLOTHING-WHEN ASKED WHY HE WAS TAKING OFF CLOTHES STATES "THEY TOLD ME I COULD GO HOME AND MY IS COMING TO PICK ME UP" REORIENTED AND REDIRECTED SEVERAL TIMES OFF OF THIS TOPIC OF LEAVING BUT REMAINS INSISTANT AND INCREASINGLY AGITATED STANDING At EXIT DOOR REFUSING TO COME BACK TO DAYROOM. ZYPREXA 2.5MG GIVEN PO PRN AT 1500. SITTING QUIETLY IN DAYROOM THIS AM-NOTED TO HAVE IRREGUALR PULSE-MILDLY TACHYCARDIC PRIOR TO RECEIVING AM CARDIZEM 240MG-PULSE RECHECKED APICALLY AT 1100 AND IS 98-IRREGULAR. DENIES C/O PAIN. DISCOMFORT. REMAINS HIGH FALLS RISK TO RECENT FALL 6-1 PM AT 2100. ��
[2019-01-12 20:28] VITALS: BP 120/69
--- NOTE | 2019-01-12 22:10 | NUR ---
RECEIVED REPORT FROM OFFGOING DAY SHIFT, ASSUMED CARE @ 19:15, IN ROOM IN BED EYES WITH CLOSED, RESPIRATIONS EVEN AND UNLABORED. AWAKENED TO VOICE. A&O X 3. WILL CONTINUE TO MONITOR Q12 MINUTE ROUNDING FOR PT SAFETY.
--- NOTE | 2019-01-12 22:16 | NUR ---
ASKED TO TALK TO SISTER OR . CALLED TO VERIFY THAT IT WAS OKAY FOR HIM TO TALKE TO HER, SHE AGREED. PT WAS CONFUSED TO SISTER'S NAME, CONFUSING IT WITH 'S NAME. ASSISTED PT TO TALK TO , THE FIRST STATEMENT HE MADE WAS "COME TAKE ME HOME" . TOOK 2100 MEDS WHOLE WITH WATER, RETIRED TO BED. WILL CONTINUE TO MONITOR Q 12 MINUTE ROUNDS.
[2019-01-12 22:46] VITALS: BP 120/69
[2019-01-12 23:35] VITALS: BP 120/69
--- NOTE | 2019-01-13 06:30 | NUR ---
SLEPT 9 HOURS.
[2019-01-13 07:25] VITALS: BP 122/73
--- NOTE | 2019-01-13 15:21 | NUR ---
INITALLY THIS AM OBSERVED TO BE CALM/COOPERATIVE-SITTING QUIETLY IN DAYROOM WITH PEERS-APPETITE GOOD-GAIT STEADY WITH USE OF ROLLER WALKER AND STANDBY ASSIST-DENIES C/O PAIN/DISCOMFORT. NO SEXUALLY INAPPRORPAITE COMMENMTS/BEHAVIORS NOTED OR OBSERVED. IS ORIENTED TO NAME ONLY. OBSERVED TO BECOME RESTLESS,PACING IN HALLWAY,UP AND DOWN IN BED ASKING REPEATDLY RO CALL AND INSISTING HE HAS BEEN DISCHARGED AND ASKING THE NURSE TO "TAKE ME TO THE ELEVATOR SO I CAN MEET MY -[facility]"ZYPREXA 2.5MG GIVEN PO PRN AT APPROX 1330.
--- NOTE | 2019-01-13 16:23 | NUR ---
LYNNETTE met with the pt Anna Marie to discuss pt diagnosis, and behaviors. Dr. Ray mention that was given a new medication. SW mention that she will fax over 3 referrals to a memory care unit. Dr. Ray mention that pt will be d/c on January 16, 2019. LYNNETTE will follow-up with Anna Marie concerning acceptance into a NF.
[2019-01-13 19:11] VITALS: BP 122/78
--- NOTE | 2019-01-13 22:31 | NUR ---
PT RESTING IN BED UPON SHIFT. COMPLIANT WITH HS MEDS AND SNACK. NO BEHAVIORS RELATED TO MASTURBATION OR SEXUALL COMMENTS. STEADY GAIT WITH WALKER, BED ALARM ON.
--- NOTE | 2019-01-14 02:23 | NUR ---
Pt awakened x 2 to use restroom and returned to bed.
[2019-01-14 07:47] VITALS: BP 113/82
[2019-01-14 10:10] VITALS: BP 113/82
--- NOTE | 2019-01-14 11:04 | NUR ---
Assess for length of stay. Admit to [facility] unit. Eating 100% of meals and wt status with healthy BMI of 25. Low nutrition risk
--- NOTE | 2019-01-14 16:53 | NUR ---
LYNNETTE will follow-up with the [facility] to assist with placement. LYNNETTE will contact [facility] on January 15, 2019.
--- NOTE | 2019-01-14 17:20 | NUR ---
ASSUMED CARE AT 0700 THIS MORNING. PT. IN BED BUT GOT UP AND ONTO THE UNIT FOR ALL MEALS AND GROUPS. HAS NOT HAD ANY HYPERSEXUAL ACTIVITY/TALK TODAY. HAS ASKED FOR HELP FINDING HIS ROOM WHEN HE NEEDED TO USE THE REST ROOM. NO INCONTINENCE NOTED TODAY. HAS AMBULATED WITH HIS WALKER TODAY WITHOUT INCIDENCE NOTED. HER THIS AFTERNOON AND VISITED WITH THE PT. BOTH SEEMED VERY HAPPY TO BE TOGETHER. DENIES SI/HI/AVH TODAY.
[2019-01-14 19:30] VITALS: BP 150/90
[2019-01-14 19:36] VITALS: BP 150/90
--- NOTE | 2019-01-14 21:44 | NUR ---
Patient in bed upon start of shift. Patient assessed. Alert and oriented to person only. Patient has been fixated about the cost of services and items being more expensive in [place] vs [place]. Patient asked repeated questions about which state he was in because "everything is more expensive in [place]". Patient assisted to dining room for HS snack. Patient took medications whole without difficulty. Staff supervised ambulation with FWW. Patient is wearing yellow non-skid socks, bed in lowest position and bed alarm is on at this time. Patient reported that he had just turned 54 years old and has been to his for 17 years. Disoriented on current time. Pleasant, cooperative, smiling.
[2019-01-15 07:38] VITALS: BP 126/67
--- NOTE | 2019-01-15 09:11 | NUR ---
[id number]: Report rec from noc shift, care assumed. Pt ambulatory in halls and to DR, uses walker, gait steady/slow. Feeds self, takes meds whole w/o difficulty. Cooperative with staff, attending morning group, 100% participation.
--- NOTE | 2019-01-15 15:52 | NUR ---
LYNNETTE left two voicemail for Zeferino the admission coordinator of [facility] to see if the pt will be accepted into the NF. LYNNETTE provided contact information to return to call .
[2019-01-15 19:37] VITALS: BP 143/96
--- NOTE | 2019-01-15 20:34 | NUR ---
PT REQUESTING TO GO TO BED UPON ARRIVAL TO SHIFT. 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 PT ALSO ASKED NURSE IF SHE WAS . PT COMPLIANT WITH MEDS, ADLS, DECLINED SNACK. STEADY GAIT WITH AMBULATION TO RESTROOM, WALKER IN USE. BED ALARM ON.
--- NOTE | 2019-01-16 01:12 | NUR ---
PT HAS URINATED 7 TIMES FROM 1900 UNTIL 99. URINE YELLOW CLEAR, NO C/O DISCOMFORT.
[2019-01-16 13:37] VITALS: BP 134/83
--- NOTE | 2019-01-16 13:48 | NUR ---
PATIENT HAS BEEN UP AND OUT ON THE UNIT, PATIENT IS FORGETFUL, CONFUSED, POOR INSIGHT TO PRESENT SITUATION. PATIENT TOOK ALL MEDICATION WHOLE WITHOUT DIFFICULTY. PATIENT IS EATING MEALS AND DRIKING FLUID WELL. PATIENT HAS BEEN CALM, QUIET, COOPERATIVE WITH CARE. NO FREQUENT VOIDING NOTED AT THIS TIME. PATIENT DENIES SUICIDAL AND HOMOCIDAL IDEATION. NO AGITATION OR AGGRESSIVE BEHAVIOR NOTED. PATIENT IS DELUSIONAL, STATES TO STAFF THAT HIS " IS " STAFF REDIRECTED PATIENT AND REMINDED HIM THAT HIS VISITED THIS MORNING, AND SHE IS GOING TO COME BACK THIS EVENING TO VISIT HIM. PATIENT CURRENTLY SITTING IN DAY ROOM TAKING OFF/ON NAP. WILL MONITOR FOR SAFETY.
--- NOTE | 2019-01-16 15:51 | NUR ---
LYNNETTE sent a referral to [facility]. Jaxon inside sales advertising executive came in evaluate the pt. Jaxon mention that he would observe the clinical notes, and we will follow-up with the LYNNETTE on January 17, 2019.
[2019-01-16 17:55] LABS: URINE BILIRUBIN NEGATIVE (Negative); URINE BLOOD TRACE (Negative); URINE CLARITY CLEAR; URINE COLOR YELLOW; URINE GLUCOSE-RANDOM* NEGATIVE (Negative); URINE KETONES TRACE (Negative); URINE LEUKOCYTES-REFLEX NEGATIVE (Negative); URINE NITRITE-REFLEX NEGATIVE (Negative); URINE PROTEIN (DIPSTICK) TRACE (Negative); URINE SPECIFIC GRAVITY 1.025 (1.005-1.035); URINE UROBILINOGEN 0.2 E.U./dl (0.2-1.0)
[2019-01-16 20:05] VITALS: BP 113/65
--- NOTE | 2019-01-16 21:23 | NUR ---
RECEIVED REPORT FROM OFFGOING DAY NURSES. ASSUMED CARE @ 19:15. IN BED, WEARING DAY CLOTHES, THINKS IT IS MORNING. COOPERATED WITH ASSESSMENT A&O TO SELF ONLY. ASKING NURSES TO HOLD HAND, AND TELLING STAFF, EVEN MALES, THAT THEY ARE A BEAUTIFUL YOUNG LADY. WILL CONTINUE TO MONITOR.
[2019-01-16 22:12] VITALS: BP 113/65
[2019-01-17 07:30] VITALS: BP 135/81
[2019-01-17 12:42] VITALS: BP 135/81
[2019-01-17] MEDS ORDERED: DEPAKOTE ER250 MG PO (12:47)
[2019-01-17] MEDS ORDERED: COLACE 100 MG100 MG PO (12:48)
--- NOTE | 2019-01-17 13:06 | NUR ---
PATIENT HAS BEEN CALM AND AGREEABLE. CONFUSED - NEEDS REDIRECTION OFTEN - MAKES NEEDS KNOWN WHEN USING BATHROOM. AMBULATES WITH WALKER BUT UNSTEADY AT TIMES. NEEDS TO BE REMINDED TO UTILIZE WALKER AT TIMES - WANDERS AWAY FROM IT. PATIENT AFFECT PLEASANT AND MOOD QUIET - APPETITE GOOD - COMPLETION OF 50 PERCENT OF MEALS. NO AGGRESSIVE BEHAVIOR OR AGITATION NOTED TODAY. MED COMPLIANT. SCHEDULED TO DISCHARGE TODAY AT 4PM.
[2019-01-17 14:47] VITALS: BP 135/81
[2019-01-17 14:56] VITALS: BP 135/81
--- NOTE | 2019-01-17 14:58 | NUR ---
Patient Name: SILVIA BRICENO Admission Date: 01/05/19 DISCHARGE PLAN: Pt will be d/c home. Care Assessment: Pt was assessed by Dr. Ray, and diagnosed with Severe, Major Neurocognitive Disorder. Level II Assessment: None Transportation: Pt will be transported by his Anna Marie. Special Instructions/Notes: Pt will need to be an memory care unit. DISCHARGE TO FACILITY: Home Facility: Phone: Fax: Address: [address] [place] [address] Contact Name: Phone: PCP: GUILLE Psychiatrist: [facility] on January 23, 2019 at 9:30am.
[2019-01-17 15:46] VITALS: BP 135/81
--- NOTE | 2019-01-17 16:02 | NUR ---
LYNNETTE spoke with the pt Anna Marie about the importance of having a VALVE TECHNICIAN to assist with pt care, and wellbeing. Dr. Pelayo recommended that pt have continuance care with a psychiatrist, and VALVE TECHNICIAN. SW provided a list HH agencies to assist with VALVE TECHNICIAN, and medication. SW schedule appointment with [facility].
--- NOTE | 2019-01-20 09:37 | D ---
[facility] [place] [address] DISCHARGE SUMMARY Name: SILVIA BRICENO Room #: 522B-B [facility] IN M.R.#: [id number] Admission: 01/05/19 ������������������ Attend Phys: Oswaldo Ray DO Discharge: 01/17/19 ������������������ Date of : 32 Report #: [id number] THIS REPORT FOR: //name// CC: Oswaldo Ray [facility] DATE OF SERVICE: 01/17/2019 ATTENDING PHYSICIAN: Oswaldo Ray DO STRIPE MARKER AT THE TIME OF DISCHARGE: Karie Feliciano MD DISCHARGE DIAGNOSES: Major neurocognitive disorder, likely due to Alzheimer disease with behavioral disturbance, improved. Medical comorbidities include chronic atrial fibrillation, on Cardizem, Eliquis; hyperlipidemia, benign prostatic hypertrophy and possibly some gastroesophageal reflux disease. He is discharged to his 's residence and she is to provide 24/7 care with her daughter, Emeka and the patient requires memory care and has an elopement risk. DISCHARGE DIET: Would be regular. activity level: The patient uses a rolling walker. He requires standby assist. DISCHARGE MEDICATIONS: Depakote ER 750 mg p.o. at bedtime, 30-day prescription given; Colace 100 mg p.o. daily, levothyroxine 75 mcg p.o. daily for hypothyroidism, atorvastatin 20 mg p.o. daily for hyperlipidemia, diltiazem 240 mg p.o. daily, apixaban 2.5 mg p.o. b.i.d., cholecalciferol 1000 International Units p.o. daily, tamsulosin 0.4 mg p.o. daily, memantine, donepezil. OUTPATIENT FOLLOWUP: [facility] was provided by social work for psychiatry, Dr. Mike here at [facility] in the office building for primary care. REASON FOR ADMISSION: An 88-year-old male with exhibition behavior, inappropriate sexual behavior. HOSPITAL COURSE: The patient was admitted to the Geriatric Psychiatry Unit. He was titrated to Depakote 750 mg daily while in the ER. His laboratory work, his Depakote level was 72 on 01/12/2019. On the day of discharge, the patient was not suicidal or homicidal. MENTAL STATUS EXAMINATION: This is a well-developed, fairly-nourished [facility] [address] [place] [address] DISCHARGE SUMMARY Name: SILVIA BRICENO Room #: 522B-B [facility] IN M.R.#: [id number] Admission: 01/05/19 ������������������ Attend Phys: Oswaldo Ray DO Discharge: 01/17/19 ������������������ Date of : 31 Report #: [id number] male, appearing stated age. Attention limited. Concentration limited. Speech is normal in rate and volume. Thought process linear. Very limited thought content, poverty of thought. No psychomotor agitation. No psychomotor retardation. No auditory, visual, or tactile hallucinations. Denies suicidal intent or plan. Denied hopelessness, helplessness. Denied homicidal intent or plan. Insight limited. Judgment limited. Fund of knowledge below average at this point. Prognosis for the patient is guarded and poor given his advanced neurodegenerative disease and the fact that he is not going to a Memory Care Facility. SPECIAL NOTE: We had a couple of family meetings with the and the importance of placement was discussed. The patient is having difficulty affording placement option as Medicaid has just become pending for the patient. ��������������������������������������������� <ELECTRONICALLY SIGNED> ���������������������������������������� By: Oswaldo Ray DO ��������������������������������������������� 01/20/19 0937 1727 0010 Oswaldo Ray DO /nt
== END 2019-01-17 18:01 | disposition home or self-care (01) | DRG 57 ==
LOC: ER 14:22 → EROBS 15:56 → SBH 15:56
PROVIDERS: Nurse Practitioner; Physician Assistant; ADMIT Psychiatry & Neurology Psychiatry
DX: G30.9 Alzheimer's disease, unspecified (principal); F02.81 Dementia in other diseases classified elsewhere, unspecified severity, with behavioral disturbance; F01.51 Vascular dementia, unspecified severity, with behavioral disturbance; N17.9 Acute kidney failure, unspecified; I48.2 Chronic atrial fibrillation; N40.0 Benign prostatic hyperplasia without lower urinary tract symptoms; F41.9 Anxiety disorder, unspecified; F32.9 Major depressive disorder, single episode, unspecified; E78.5 Hyperlipidemia, unspecified; E03.9 Hypothyroidism, unspecified; I12.9 Hypertensive chronic kidney disease with stage 1 through stage 4 chronic kidney disease, or unspecified chronic kidney disease; N18.9 Chronic kidney disease, unspecified; E87.6 Hypokalemia; Z85.828 Personal history of other malignant neoplasm of skin; Z98.1 Arthrodesis status; Z87.891 Personal history of nicotine dependence; Z86.73 Personal history of transient ischemic attack (TIA), and cerebral infarction without residual deficits
CPT/HCPCS: 10880

== ENCOUNTER 2019-03-10 20:27 | Inpatient (IN) | payer OTHER ==
[~2019-03-10] VITALS: Ht 170.2 cm; Wt 81.8 kg
[~2019-03-10 20:27] MED LIST changes: +COLACE 100 MG100 MG PO; +DEPAKOTE ER250 MG PO; +FLOMAX0.4 MG PO; +VITAMIN D1000 UNI1 PO
[2019-03-10 20:37] VITALS: BP 122/84
[2019-03-10 21:25] LABS: HEMATOCRIT 42.3 % (42.0-52.0); HEMOGLOBIN 14.3 gm/dL (14.0-18.0); MCH 31.4 pg (26.0-34.0); MCHC 33.8 g/dL (28.0-37.0); MCV 92.8 fL (80.0-100.0); PLATELET COUNT 183 thou/uL (150-400); RBC 4.56 mil/uL (4.50-6.00); RDW 14.4 % (10.5-14.5)
[2019-03-10 21:32] LABS: ANION GAP 8 mmol/L (7-16); BUN 40 mg/dL (7-18); CALCIUM 9.2 mg/dL (8.5-10.1); CHLORIDE 106 mmol/L (98-107); CO2 29 mmol/L (21-32); GLUCOSE 97 mg/dL (74-106); POTASSIUM 3.6 mmol/L (3.5-5.1); SODIUM 143 mmol/L (136-145)
[2019-03-10 21:36] LABS: APTT 29.6 Seconds (24.5-32.8); INR 1.2; PROTIME 12.9 Seconds (9.3-11.4)
[2019-03-10 21:42] LABS: ALBUMIN 3.4 g/dL (3.4-5.0); SGOT 31 U/L (15-37); SGPT 31 U/L (30-65); TOTAL BILIRUBIN 0.4 mg/dL (<0.1-1.0); TOTAL PROTEIN 7.3 g/dL (6.4-8.2); TROPONIN-I <0.06 ng/mL (<0.06)
[2019-03-10 21:55] LABS: ABSOLUTE NEUTROPHILS 5.2 thou/uL (1.4-8.2); ANISOCYTOSIS 1+
[2019-03-10 23:27] LABS: URINE BILIRUBIN NEGATIVE (Negative); URINE BLOOD 3+ (Negative); URINE CLARITY SL CLOUDY; URINE COLOR YELLOW; URINE GLUCOSE-RANDOM* NEGATIVE (Negative); URINE KETONES NEGATIVE (Negative); URINE LEUKOCYTES-REFLEX NEGATIVE (Negative); URINE NITRITE-REFLEX NEGATIVE (Negative); URINE PROTEIN (DIPSTICK) 2+ (Negative); URINE SPECIFIC GRAVITY >= 1.030 (1.005-1.035); URINE UROBILINOGEN 0.2 E.U./dl (0.2-1.0)
[2019-03-10 23:31] LABS: BACTERIA-REFLEX 1-9 Few /HPF (None Seen); CRYSTALS None Seen /LPF (None Seen); HYALINE CASTS 0-3 Few /LPF (None Seen); MUCUS >6 Heavy strn/LPF (None Seen); SQUAMOUS 0-3 Few /LPF (0-3); URINE RBC >20 Many /HPF (0-2); URINE WBC-REFLEX 0-5 Rare /HPF (0-5)
[2019-03-11] VITALS (7 sets, daily range): BP systolic 121–152; BP diastolic 60–88
--- NOTE | 2019-03-11 03:45 | NUR ---
ADMITED FROM ER AROUND 0130. ASSESSMENT CHARTED. VSS. PT ASIM PAIN OR CONCERN. ALERT TO SELF AND PLACE AT TIMES, UNABLE TO SIGN PAPER WORK STATES HE NEEDS HIS WIFES HELP WHO SHOULD BE HERE THIS AM- SHE WILL ALSO BRING HIS MED LIST. CONFUSED ON AND OFF, APHASIA. ER STATED SLIGHT RIGHT SIDED WEAKNESS, EQUAL STRENGTH DURING MY ASSESSMENT. FLUIDS PER EMAR. PLAN FOR MRI, US CAROTIDS, AND LABS THIS AM WILL CONTINUE TO MONITOR AND WITH POC.
[2019-03-11 03:59] LABS: ANION GAP 9 mmol/L (7-16); BUN 34 mg/dL (7-18); CALCIUM 8.4 mg/dL (8.5-10.1); CHLORIDE 108 mmol/L (98-107); CHOLESTEROL 114 mg/dL (<200); CO2 29 mmol/L (21-32); CREATININE 1.8 mg/dL (0.7-1.3); GLUCOSE 91 mg/dL (74-106); HDL CHOLESTEROL 53 mg/dL (>40); LDL CHOLESTEROL 55 mg/dL (<100); POTASSIUM 3.5 mmol/L (3.5-5.1); SODIUM 146 mmol/L (136-145); TC:HDL 2.2 Ratio (Not establshd); TRIGLYCERIDE 34 mg/dL (<150); VLDL 7 mg/dL (<40)
[2019-03-11 04:16] LABS: SERUM ASSESSMENT Clear
--- NOTE | 2019-03-11 08:48 | EKG ---
[address] [address] ELECTROCARDIOGRAM REPORT Name: SHARON BRICENOIN Edgardo Room #: 212-P ADM IN M.R.#: [id number] ������������������ Admission: 03/11/19 ������������������ Attend Phys: Steven Overton MD Discharge: ������������������ Date of : 32 Report #: [id number] ����������������������������������������������������������������� [id number] THIS REPORT FOR: //name// [facility] ED Test Date: 2019-03-10 Test Time: 20:57:10 Pat Name: SILVIA BRICENO Department: Room: [facility] Gender: M Bell Tier: PRABHU : 1930 Requested By: George Rivers Order Number: [id number] MD: iSlviano Rios Measurements Intervals [place] Rate: 62 P: SC: QRS: -8 QRSD: 92 T: 29 QT: 460 QTc: 468 Interpretive Statements Atrial fibrillation Anterior infarct, old Compared to ECG 01/19/2018 15:29:49 no significant change was found Electronically Signed On 03-11-2019 8:48:30 CDT by Silviano Rios [email or web address] ��������������������������������������������� <ELECTRONICALLY SIGNED> ���������������������������������������� By: Silviano Rios MD, [facility] ��������������������������������������������� 03/11/1947 56 56 Silviano Rios MD, [facility] /EPI
--- NOTE | 2019-03-11 09:33 | NUR ---
PT OFF UNIT TO MRI.
[2019-03-11] MEDS ORDERED: NAMENDA 10 MG T10 MG PO (19:17)
--- NOTE | 2019-03-11 19:32 | NUR ---
REPORT GIVEN TO SUSANA MOORE. CONTACT COUNCILMAN TO RESTART MEDS VERIFED WITH PT'S PHARMACY.
[2019-03-12 00:08] LABS: GLYCOHEMOGLOBIN (HGB A1C) 5.8 % (4.8-5.6)
--- NOTE | 2019-03-12 03:02 | NUR ---
ASSESSMENT CHARTED. VSS. PT DENIES PAIN, SOA, OR CONCERN. AT BEDSIDE THROUGHOUT NIGHT. CONCERNED SHE DID NOT SEE A NEURO DOCTOR TODAY LOOK AT HER . PT TOOK MEDS WITH OUT DIFFICULTY. INCONTINENT OF URINE AND BOWEL. APHASIA. FLUIDS PER EMAR. WILL CONTINUE TO MONITOR AND WITH POC.
[2019-03-12 04:57] VITALS: BP 130/99
[2019-03-12 08:13] VITALS: BP 96/52
[2019-03-12 08:42] LABS: CALCIUM 8.5 mg/dL (8.5-10.1); CREATININE 1.5 mg/dL (0.7-1.3); POTASSIUM 3.4 mmol/L (3.5-5.1)
--- NOTE | 2019-03-12 10:53 | NUR ---
Met with patient and . Patient with dementia, sleeping. sp with at bedside. She reports patient appears weaker at home. THey live in 2 story home and needing more assist with having patient ambulate up steps. They are interested in post acute care in particular [facility]. toured facility. Casemgt to assist in facilitating,
--- NOTE | 2019-03-12 12:07 | NUR ---
FAXED REFERRAL TO [facility] FOR SKILLED STAY LEFT MSG WITH ADM PT TO DC SOON. DCP TO FOLLOW.
--- NOTE | 2019-03-12 17:57 | NUR ---
ASSUMED CARE AT 0700, SHIFT ASSESSMENT DONE, VSS. A&O TO SELF ONLY. UPSET ABOUT WHY MEDICATION LIST WAS NOT UPDATED. DR PERKINS INSTRUCTED THIS NURSE TO UPDATE MED LIST BASED OFF OF THE PS MED LIST WHEN PATIENT WAS DISCHARGED FROM [facility]. IT WAS DONE, BUT IT TOOK SOME TIME TO UPDATE MED LIST. WAS UPSET ABOUT THIS WELL. PHYSICAL AND OCCUPATIONAL THERAPHY CONSULT IN. SEEN BY BOTH OF THEM, WAS ABLE TO SIT UP IN THE CHAIR WITH MODEARATE ASSIST. ACCORDING TO THE , PATIENT IS NOT AT HIS BASELINE, WHICH AT [facility] HE CAN FEED HIMSELF, WALK AND NOT BE INCONTIENT. PHYSICIAN AWARE OF THIS SITUATION. WILL CONTINUE TO ASSESS AND ASSIST WITH ADLs NEEDED.
[2019-03-12 19:01] VITALS: BP 125/61
[2019-03-13 03:52] VITALS: BP 115/65
--- NOTE | 2019-03-13 04:23 | NUR ---
RECEIVED PT'S CARE AT 1926; PT. ON CHAIR; ALERT; AWAKE; WATCHING TV; DURING ASSESSMENT PT. ALERT TO PERSON; DOES NOT FOLLOW CONVERSATION; HS MEDICATION GIVEN; TRANSFER TO BED; SCDs APPLIED; AROUND LATE TO 2100; PT'S AT THE BED SIDE; ST. PT. LOOKING BETTER; WHEN ASKED IF HAVE ANY PAIN; ST. NO PAIN; ABLE TO REST THROUGH THE NIGHT WITH EYES CLOSED; TURN FROM SIDE TO SIDE Q2H; INCONTINENT; HAD BM; ASSESSMENT CHARGED; FOLLOWING POC; MONITORING; WILL PASS ON REPORT.
[2019-03-13 05:22] LABS: CALCIUM 8.3 mg/dL (8.5-10.1); CREATININE 1.4 mg/dL (0.7-1.3); POTASSIUM 3.2 mmol/L (3.5-5.1)
[2019-03-13 07:30] VITALS: BP 138/88
--- NOTE | 2019-03-13 09:32 | NUR ---
ASSUMED CARE OF PT APPROX 0715, IS ALERT TO SELF/BDATE. STATES HE WALKS INDEPENDENTLY, IS NOT IMPULSIVE THUS FAR YET BED ALARM ENGAGED FOR SAFETY. 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 DID RETURN DEMO THREAD GRINDER LIGHT USE. CALLED AND THIS NURSE VISITED W/HER FOR A BIT. ENCOURAGED HIM TO USE CALL LIGHT FOR ANY NEEDS. ENCOURAGING ALSO WITH FREQ POSITION CHANGES.
[2019-03-13 11:40] VITALS: BP 119/81
--- NOTE | 2019-03-13 13:04 | NUR ---
CALLED FACILITY AND SPOKE TO A BRENTON SHE TRANSFERRED ME TO EXT 800, LEFT DETAILED VOICE MAIL WITH MY PHONE NUMBER
--- NOTE | 2019-03-13 13:20 | NUR ---
[facility] requesting [id number] form completed prior to admission. Sp with Parris and alerted likey will trigger level 2. Plan to complete PASSAR. Patient with auth for post acute skilled care at [facility]. wc van from [facility] for 1400. Chart copied. Orders faxed, left message with admissions no further needs.
--- NOTE | 2019-03-13 13:23 | NUR ---
PT DISCHARGING TODAY TO [facility] FAXED DC ORDERS/SUMMARY TO FACILITY SPOKE WITH SHAMAR IN ADM SHE RECEIVED DC ORDERS AND ARRANGED TRANSPORT VIA WC VAN FOR 1400 TODAY. NOTIFIED PT'S OF DC AND TIME OF TRANSPORT. UNIT NOTIFIED AND CHART COPY PER US. RN TO CALL REPORT TO [phone].
== END 2019-03-13 13:58 | DRG 69 ==
LOC: ER 20:27 → EROBS 23:54 → 2N 03-11 00:11 → EROBS 03-11 00:11 → ER 03-11 00:11 → 2N 03-11 01:06 → EROBS 03-11 01:06 → 2N 03-12 09:45
PROVIDERS: Emergency Medicine; Nurse Practitioner Family; ADMIT Internal Medicine
DX: G45.9 Transient cerebral ischemic attack, unspecified (principal); N17.9 Acute kidney failure, unspecified; E87.0 Hyperosmolality and hypernatremia; F03.91 Unspecified dementia, unspecified severity, with behavioral disturbance; I10 Essential (primary) hypertension; I48.91 Unspecified atrial fibrillation; E78.5 Hyperlipidemia, unspecified; E03.9 Hypothyroidism, unspecified; R41.0 Disorientation, unspecified; E87.8 Other disorders of electrolyte and fluid balance, not elsewhere classified; E87.6 Hypokalemia; N40.0 Benign prostatic hyperplasia without lower urinary tract symptoms; E55.9 Vitamin D deficiency, unspecified; E86.0 Dehydration; Z87.891 Personal history of nicotine dependence; Z86.718 Personal history of other venous thrombosis and embolism; Z79.82 Long term (current) use of aspirin; Z79.899 Other long term (current) drug therapy
CPT/HCPCS: 10081; 10797